=== PATIENT | female | born 1995 | race Caucasian/White ===

== ENCOUNTER 2018-10-30 05:19 | Day surgery (SDC) | payer OTHER ==
[2018-10-22 11:50] LABS: HEMATOCRIT 41.2 % (36.0-47.0); HEMOGLOBIN 14.8 g/dL (12.0-15.5); MEAN CORPUSCULAR HEMOGLOBIN 32.8 pg (27.0-33.4); MEAN CORPUSCULAR VOLUME 91 fl (80-97); PLATELET COUNT 221 10^3/uL (150-450); RED BLOOD COUNT 4.53 10^6/uL (3.72-5.28); RED CELL DISTRIBUTION WIDTH 12.4 % (11.5-14.0)
[2018-10-22 11:56] LABS: APPEARANCE,URINE CLEAR; BILIRUBIN,URINE NEGATIVE (NEGATIVE); COLOR,URINE YELLOW; GLUCOSE, URINE NEGATIVE (NEGATIVE); KETONES,URINE NEGATIVE (NEGATIVE); LEUKOCYTE ESTERASE,URINE NEGATIVE (NEGATIVE); NITRITE,URINE NEGATIVE (NEGATIVE); PROTEIN,URINE NEGATIVE (NEGATIVE); URINE SPECIFIC GRAVITY 1.008; UROBILINOGEN,URINE NEGATIVE mg/dL (<2.0)
[~2018-10-30 05:19] MED LIST: LACTATED RINGERS 1000 ML IV PRN; LIDOCAINE 0.5% INJ-PF (5 MG/ML) 50 ML SDV SUBCUT PRN; SCOPOLAMINE HYDROBROMIDE 1.5 MG PATCH.TD72 TD PRN
[2018-10-30] MEDS ORDERED: SCOPOLAMINE HYDROBROMIDE 1.5 MG PATCH.TD72 ONE (05:27)
[2018-10-30] MEDS ORDERED: LIDOCAINE 1%/EPINEPHRINE INJ 20 ML VIAL ONE (07:08)
[2018-10-30] MEDS ORDERED: FENTANYL CITRATE INJ/PF 100 MCG/2 ML AMPUL ONE ×2 (07:16→08:46)
[2018-10-30] MEDS ORDERED: MIDAZOLAM 2 MG/2 ML INJ ONE ×2 (07:16→07:20)
[2018-10-30] MEDS ORDERED: ONDANSETRON HCL INJ/PF 4 MG/2 ML SDV ONE (07:16)
[2018-10-30] MEDS ORDERED: DEXAMETHASONE SOD PHOSPHATE INJ 4 MG/1 ML VIAL ONE (07:16)
[2018-10-30] MEDS ORDERED: LIDOCAINE 2% INJ-PF (100 MG/5 ML) SYRINGE ONE (07:16)
[2018-10-30] MEDS ORDERED: PROPOFOL INJ 200 MG/20 ML VIAL IV ONE (07:17)
[2018-10-30] MEDS ORDERED: ACETAMINOPHEN 1,000 MG/100 ML RTUPB IV ONE (07:17)
[2018-10-30] MEDS ORDERED: SILVER SULFADIAZINE 1% CREAM 25 GM ONE (07:45)
[2018-10-30] MEDS ORDERED: MEPERIDINE HCL/PF INJ 25 MG/1 ML DISP.SYRIN IV PRN (07:50)
[2018-10-30] MEDS ORDERED: FENTANYL CITRATE INJ/PF 100 MCG/2 ML AMPUL IV PRN ×3 (07:50)
[2018-10-30] MEDS ORDERED: DIPHENHYDRAMINE HCL 50 MG/ML VIAL IV PRN (07:50)
[2018-10-30] MEDS ORDERED: ONDANSETRON HCL INJ/PF 4 MG/2 ML SDV IV PRN (07:50)
[2018-10-30] MEDS ORDERED: PROMETHAZINE HCL INJ 25 MG/1 ML VIAL IV PRN ×2 (07:50)
[2018-10-30] MEDS ORDERED: FLUMAZENIL INJ 0.5 MG/5 ML VIAL ONE (08:19)
[2018-10-30] MEDS ORDERED: MORPHINE SULFATE 10 MG/ML INJ IM PRN (08:45)
[2018-10-30] MEDS ORDERED: IBUPROFEN 800 MG TABLET PO PRN (08:46)
[2018-10-30] MEDS ORDERED: OXYCODONE-ACETAMINOPHEN 5-325 MG TABLET PO PRN ×2 (08:46→08:47)
[2018-10-30] MEDS ORDERED: SUCCINYLCHOLINE CHLORIDE INJ 200 MG/10 ML VIAL ONE (09:21)
[2018-10-30] MEDS ORDERED: OXYCODONE-ACETAMINOPHEN 5-325 MG TABLET ONE (09:28)
--- NOTE | 2018-10-30 10:28 | OPERATIVE REPORT E ---
Operative Report NAME: DAVEY YAO : 1995 AGE: 23Y DATE OF SURGERY: 10/30/2018 ROOM: PREOPERATIVE DIAGNOSIS: Left labial hypertrophy. POSTOPERATIVE DIAGNOSIS: Left labial hypertrophy. OPERATION: Left labiaplasty. SURGEON: SYLVIE LAMAR M.D. COLLECTION ANALYST: Merced Kelly first officer and flight instructor surgical instrument repair specialist ANESTHESIA: Brianna Montejo M.D. with general and Pramod Hooks CRNA FINDINGS: Enlarged left labial minora flap measuring approximately 5.5 cm in length and 4 cm in width. ESTIMATED BLOOD LOSS: Less than 10 mL. COMPLICATIONS: None. PATHOLOGY: Labial tissue. PROCEDURE IN DETAIL: The patient was taken to the operating room, prepared and draped in a normal sterile fashion in dorsal lithotomy position. Under sterile conditions the labia was examined carefully and marked with a marking pen to assimilate symmetry with the right side. The markings were then undermined with lidocaine 2% with epinephrine, approximately 5.5 mL were injected. The tissue was then scored at the marking lines using a 15 blade. The 15 blade was then used to continue removal of the tissue until it was complete. The tissue was then inspected and found to be symmetric and there was no need for any further excision. The defect was then closed with 2-0 Vicryl in a running fashion. The wound was then covered with Silvadene cream. The patient tolerated the procedure well. Sponge, lap, and needle counts were correct x2. The patient was taken to recovery in stable condition. DICTATING PHYSICIAN: SYLVIE LAMAR M.D. [id number] PHY#: [id number] ID: [id number] JOB#: [id number] ACCT: [id number] cc:SYLVIE LAMAR M.D. >
[2018-10-30 10:34] VITALS: BP 102/64
== END 2018-10-30 10:43 | disposition home or self-care (01) ==
LOC: OROUT 05:19
PROVIDERS: ATTEND Obstetrics & Gynecology
DX: N90.60 Unspecified hypertrophy of vulva (principal); N94.819 Vulvodynia, unspecified
CPT/HCPCS: 36415; 85027; 81025; 81001; 88305 ×2; 56620; J2250; J1100; J3010; J3490; J2001; J0330; J2405; J2704; J0131; 940